=== PATIENT | male | born 1960 | race Two or more races ===

== ENCOUNTER 2020-01-07 08:33 | Day surgery (SDC) | payer OTHER ==
[~2020-01-07 08:33] MED LIST: INTESTINEX680 MG PO; OXYC1TAB9 PO
== END 2020-01-07 13:30 | disposition home or self-care (01) ==
LOC: AMB-ENDOS 08:33
PROVIDERS: ATTEND Surgery
DX: D12.0 Benign neoplasm of cecum (principal); Z20.828 Contact with and (suspected) exposure to other viral communicable diseases